=== PATIENT | female | born 1975 | race Caucasian/White ===

== ENCOUNTER → 2016-12-19 | Outpatient (CLI) | payer BC, OTHER ==
[~2016-12-19] MED LIST: CETI10TA84 PO; CLON0.5T3 PO; RXC/5 PO; VENL150C56 PO
== END | disposition home or self-care (01) ==
LOC: C.LABMFLN 15:36
PROVIDERS: ATTEND Radiology Radiation Oncology
DX: C03.1 Malignant neoplasm of lower gum (principal); Z92.3 Personal history of irradiation

== ENCOUNTER 2017-01-11 10:25 | Emergency (ER) | payer BC, OTHER ==
[~2017-01-11] VITALS: Ht 160 cm; Wt 79.2 kg
[2017-01-11 10:30] VITALS: TEMP 36.7; Ht 160 cm; Wt 79.2 kg
[2017-01-11] MEDS ORDERED: ONDANSETRON INJ 2 MG/ML 2 ML VIAL IV STA (10:46)
[2017-01-11] MEDS ORDERED: SODIUM CHLORIDE 0.9% 1000ML 2,000 ML IV STA (10:46)
[2017-01-11] MEDS ORDERED: VENL150C56 PO (10:55)
[2017-01-11] MEDS ORDERED: CLON0.5T3 PO (10:55)
[2017-01-11] MEDS ORDERED: CETI10TA84 PO (10:55)
[2017-01-11] MEDS ORDERED: RXC/5 PO (10:55)
[2017-01-11 11:00] LABS: BASO % 0.4 %; BASO ABS # 0.03 K/uL (0-0.2); COMPLETE YES; EOS % 2.8 %; HEMATOCRIT 36.8 % (37-47); IG% 0.3 %; LYMPH % 13.2 %; LYMPH ABS # 0.94 K/uL (1.2-3.4); MEAN CELL VOLUME 84.2 fL (80-100); MEAN CORPUSCULAR HEMOGLOBIN 29.1 pg (25-34); MEAN CORPUSCULAR HGB CONC 34.5 g/dl (32-36); MEAN PLATELET VOLUME 8.6 fL (7.4-10.4); MONO % 8.3 %; PLATELET COUNT 241 K/uL (130-400); RED BLOOD COUNT 4.37 M/uL (4.2-5.4); WHITE BLOOD COUNT 7.14 K/uL (4.8-10.8)
--- NOTE | 2017-01-11 11:08 | EMERGENCY ROOM VISIT NOTE ---
History Report prepared by Eric: Mustapha Fisher Under the Supervision of: Dr. Dc Greenberg M.D. First contact with patient: 10:38 Chief Complaint: DIZZY Stated Complaint: DIZZINESS,UPSET STOMACH,FEELS DEHYDRATED History of Present Illness The patient is a 41 year old female who presents to the Emergency Room with complaints of intermittent dizziness beginning a few days ago. She describes her dizziness as "it feels like the room is spinning". She states that she feels dehydrated, and her mouth is dry. She notes that she had a headache a few days ago, but currently denies one. The patient also complains of nausea. Her symptoms are improved with sitting. She denies any chest pain, SOB, urinary symptoms, or vomiting. 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 She states that she had her jaw bone removed , and replaced with a bone from her leg during the surgery. She then received radiation treatments, but no chemotherapy. The patient has a history of dehydration due to having difficulty with eating. She notes that she had a head and a chest CT last week which did not show any malignancy. Source of History: patient Onset: A few days ago Quality: other (dizziness) Timing: intermittent Modifying Factors (Relieving): other (Sitting) Associated Symptoms: + headache (resolved), + nausea, No chest pain, No SOB , No vomiting, No urinary symptoms Review of Systems See HPI for pertinent positives & negatives. A total of 10 systems reviewed and were otherwise negative. Past Medical & Surgical Medical Problems: (1) Jaw cancer (2) No Known Active Medical Problems Family History No pertinent family history stated. Social History Smoking Status: Never Smoker Marital Status: Housing Status: lives with family Current/Historical Medications Scheduled Cetirizine (Zyrtec), 10 MG PO QAM Clonazepam (Klonopin), 0.5 MG PO QPM Venlafaxine Hcl (Effexor Extended Rel), 150 MG PO QAM Scheduled PRN Oxycodone HCl (Oxycodone HCl), 5 MG PO BID PRN for Pain Allergies Coded Allergies: Acetazolamide (Unverified Allergy, Unknown, GI UPSET/VOMIT/SOB, 01/11/17) Sulfa Antibiotics (Unverified Allergy, Unknown, HIVES, 01/11/17) Sulfamethoxazole w/Trimethoprim (Unverified Allergy, Unknown, HIVES, ) Physical Exam Vital Signs Date Time Temp Pulse Resp B/P (MAP) Pulse Ox O2 Delivery O2 Flow Rate FiO2 01/11/17 12:27 84 143/86 99 01/11/17 10:51 80 01/11/17 10:50 78 16 131/82 82 140/87 85 134/89 01/11/17 10:30 36.7 86 20 129/87 99 Room Air Physical Exam GENERAL: Patient is in no acute distress. HEENT: No acute trauma, normocephalic atraumatic, mucous membranes moist, no nasal congestion, no scleral icterus. No nystagmus. NECK: No stridor, no adenopathy, no meningismus, trachea is midline. LUNGS: Clear to auscultation bilaterally, no wheeze, no rhonchi, breath sounds equal. HEART: Without murmurs gallops or rubs, regular rate and rhythm. ABDOMEN: Soft, nontender, bowel sounds positive, no hernias, no peritonitis. EXTREMITIES: No cyanosis or edema, full range of motion of all the joints without pain or difficulty, no signs for acute trauma. NEUROLOGIC: Oriented x 3, no acute motor or sensory deficits, no focal weakness. No speech slur of facial droop. No pronator drift or cerebellar dysfunction. SKIN: No rash, no jaundice, no diaphoresis. Medical Decision & Procedures ER Provider Diagnostic Interpretation: Orthostatic vital signs are negative. Urine dip negative for infection or blood. Laboratory Results 01/11/17 10:45 Red Blood Count 4.37, Mean Corpuscular Volume 84.2, Mean Corpuscular Hemoglobin 29.1, Mean Corpuscular Hemoglobin Concent 34.5, Mean Platelet Volume 8.6, Neutrophils (%) (Auto) 75.0, Lymphocytes (%) (Auto) 13.2, Monocytes (%) (Auto) 8.3, Eosinophils (%) (Auto) 2.8, Basophils (%) (Auto) 0.4, Neutrophils # (Auto) 5.36, Lymphocytes # (Auto) 0.94, Monocytes # (Auto) 0.59, Eosinophils # (Auto) 0.20, Basophils # (Auto) 0.03 01/11/17 10:45 Test 01/11/17 10:45 01/11/17 11:35 White Blood Count 7.14 K/uL (4.8-10.8) Red Blood Count 4.37 M/uL (4.2-5.4) Hemoglobin 12.7 g/dL (12.0-16.0) Hematocrit 36.8 % (37-47) Mean Corpuscular Volume 84.2 fL (80-100) Mean Corpuscular Hemoglobin 29.1 pg (25-34) Mean Corpuscular Hemoglobin Concent 34.5 g/dl (32-36) Platelet Count 241 K/uL (130-400) Mean Platelet Volume 8.6 fL (7.4-10.4) Neutrophils (%) (Auto) 75.0 % Lymphocytes (%) (Auto) 13.2 % Monocytes (%) (Auto) 8.3 % Eosinophils (%) (Auto) 2.8 % Basophils (%) (Auto) 0.4 % Neutrophils # (Auto) 5.36 K/uL (1.4-6.5) Lymphocytes # (Auto) 0.94 K/uL (1.2-3.4) Monocytes # (Auto) 0.59 K/uL (0.11-0.59) Eosinophils # (Auto) 0.20 K/uL (0-0.5) Basophils # (Auto) 0.03 K/uL (0-0.2) RDW Standard Deviation 41.2 fL (36.4-46.3) RDW Coefficient of Variation 13.5 % (11.5-14.5) Immature Granulocyte % (Auto) 0.3 % Immature Granulocyte # (Auto) 0.02 K/uL (0.00-0.02) Anion Gap 7.0 mmol/L (3-11) Est Creatinine Clear Calc Drug Dose 150.6 ml/min Estimated GFR () 139.2 Estimated GFR (Non- 120.1 BUN/Creatinine Ratio 12.6 (10-20) Calcium Level 8.9 mg/dl (8.5-10.1) Total Bilirubin 0.4 mg/dl (0.2-1) Aspartate Amino Transf (AST/SGOT) 19 U/L (15-37) Alanine Aminotransferase (ALT/SGPT) 24 U/L (12-78) Alkaline Phosphatase 65 U/L (45-117) Total Protein 8.0 gm/dl (6.4-8.2) Albumin 3.6 gm/dl (3.4-5.0) Globulin 4.4 gm/dl (2.5-4.0) Albumin/Globulin Ratio 0.8 (0.9-2) Thyroid Stimulating Hormone (TSH) 1.910 uIu/ml (0.300-4.500) Urine Color YELLOW Urine Appearance CLEAR (CLEAR) Urine pH 7.0 (4.5-7.5) Urine Specific [place] 1.014 (1.000-1.030) Urine Protein NEG (NEG) Urine Glucose (UA) NEG (NEG) Urine Ketones NEG (NEG) Urine Occult Blood NEG (NEG) Urine Nitrite NEG (NEG) Urine Bilirubin NEG (NEG) Urine Urobilinogen NEG (NEG) Urine Leukocyte Esterase NEG (NEG) Laboratory results reviewed by me. Medications Administered Medications (Trade) Dose Ordered Sig/August Route Start Time Stop Time Status Last Admin Dose Admin Ondansetron HCl (Zofran Inj) 4 mg NOW STAT IV 01/11/17 10:46 01/11/17 10:49 DC 01/11/17 11:07 4 MG Sodium Chloride 2,000 ml @ 999 mls/hr Q2H1M STAT IV 01/11/17 10:46 01/11/17 12:42 DC 01/11/17 11:07 999 MLS/HR ED Course 1041: The patient was evaluated in room A10. A complete history and physical exam was performed. 1046: Ordered Sodium Chloride 2000 ml @ 999 mls/hr IV, Zofran Inj 4 mg IV. 1210: Reevaluated the patient. Discussed results and discharge instructions: she verbalized understanding and agreement. The patient is ready for discharge. Medical Decision The patient is a 41 year old female who presents to the ED with complaints of dizziness. Differential diagnoses considered include dehydration, electrolyte imbalance, anemia, UTI, vertigo, metastatic disease, and stroke. There is no leukocytosis or concerning anemia. No significant electrolyte abnormality, kidney failure or hepatitis. Orthostatic vital signs are negative. The patient appears to be in a euthyroid state. Urinalysis does not show evidence for infection. The patient was not toxic or febrile, she was resting comfortably during my evaluation. The patient just underwent a CT of her brain and chest looking for metastases, these studies were negative. On exam, she has no focal neurologic deficits. The patient was given IV Zofran, she received IV saline, she feels improved. The patient is likely dehydrated, there maybe some vertigo present as well. I do think rest and hydration are what she requires. She can return here for worsening symptoms. Impression Primary Impression: Dizziness Additional Impression: Dehydration Scribe Attestation The scribe's documentation has been prepared under my direction and personally reviewed by me in its entirety. I confirm that the note above accurately reflects all work, treatment, procedures, and medical decision making performed by me. Departure Information Dispostion Home / Self-Care Referrals Everette Green M.D. (PCP) Forms HOME CARE DOCUMENTATION FORM, IMPORTANT VISIT INFORMATION Patient Instructions My [facility] Additional Instructions stay hydrated return if worsening lab testing today was ok Problem Qualifiers
[2017-01-11 11:15] LABS: BUN/CREATININE RATIO 12.6 (10-20); CALCIUM 8.9 mg/dl (8.5-10.1); CREATININE 0.48 mg/dl (0.60-1.20); POTASSIUM 3.9 mmol/L (3.5-5.1)
[2017-01-11 11:26] LABS: ALB/GLOB RATIO 0.8 (0.9-2); THYROID STIMULATING HORMONE 1.91 uIu/ml (0.300-4.500)
[2017-01-11 12:01] LABS: MANUAL MICROSCOPIC REQUIRED? NO; REVIEW REQ? NO; URINE APPEARANCE CLEAR (CLEAR); URINE BILIRUBIN NEG (NEG); URINE COLOR YELLOW; URINE NITRITE NEG (NEG); URINE SPECIFIC GRAVITY 1.014 (1.000-1.030); UROBILINOGEN NEG (NEG); ZZUR CULT IF INDIC CLEAN CATCH NO
[2017-01-11 12:27] VITALS: BP 143/86; PULSE 84; O2SAT 99
== END 2017-01-11 12:30 | disposition home or self-care (01) ==
LOC: C.EDB 10:27 → C.EDA 12:30
DX: E86.0 Dehydration (principal); R42 Dizziness and giddiness; Z98.890 Other specified postprocedural states; Z85.830 Personal history of malignant neoplasm of bone; Z92.3 Personal history of irradiation; Z79.899 Other long term (current) drug therapy

== ENCOUNTER → 2017-07-10 | Outpatient (CLI) | payer BC ==
[~2017-07-10] MED LIST changes: -CLON0.5T3 PO; +GABA-112 PO; +KLN/5 PO; +LEVE250T PO; +MELO7.5T5 PO; +compound cream
== END | disposition home or self-care (01) ==
LOC: C.LABMFLN 08:31
PROVIDERS: ATTEND Family Medicine
DX: R35.0 Frequency of micturition (principal); R39.15 Urgency of urination

== ENCOUNTER 2025-03-23 14:24 | Observation (INO) ==
--- NOTE | 2025-03-23 14:40 | Emergency Department Note ---
Impression & Plan Cellulitis ED Provider Note CHIEF COMPLAINT: Cellulitis HISTORY OF PRESENTING ILLNESS: The patient is a pleasant 49-year-old female who arrives to the emergency department for evaluation of a bug bite on the back. The patient was seen on Saturday night for back pain, discharged home on doxycycline, as she was previously seen at urgent care, and provided Keflex. Patient states the area has not improved, and has worsened. She states pain is worsened as well. She reports feeling feverish at home. She reports persistent fatigue, abdominal pain, nausea. Vital signs are currently stable, she is currently afebrile. REVIEW OF SYSTEMS: See HPI for pertinent positives and pertinent negatives. ALLERGIES: See below MEDICATIONS: See below PAST MEDICAL HISTORY: See below PHYSICAL EXAM: VITALS: Vitals are noted on the nurse's note and reviewed by myself. Vital signs stable. GENERAL: 49-year-old female, in no acute distress, nondiaphoretic, well- developed well-nourished. SKIN: 9cm x 5cm erythematous, indurated area on the left mid back. No central fluctuance noted. HEART: Regular rate and rhythm without murmurs gallops or rubs. LUNGS: Clear to auscultation bilaterally without wheezes, rales or rhonchi. No retractions or accessory muscle use. MUSCULOSKELETAL: No muscle atrophy, erythema, or edema noted. Normal gait. Strength 5/5 throughout. NEURO: Patient was alert and oriented to person place and time. No focal neurological deficits. DIFFERENTIAL DIAGNOSIS: Cellulitis, abscess, MRSA infection, DVT, necrotizing fasciitis, dermatitis, drug eruption, allergic reaction, as well as other pathologies. ED COURSE AND MEDICAL DECISION MAKING: MEDICATIONS GIVEN: IV Rocephin 2 g, IV vancomycin 1750 mg INTERPRETATION OF LABS: I interpreted the labs with full lab results as below in the lab section of this note. Pertinent lab results discussed in the MDM section below. INTERPRETATION OF IMAGING: Imaging studies were interpreted by myself and read by radiology as per the imaging section of this note. MDM SUMMARY: The patient is a pleasant, 49-year-old female who arrives to the emergency department for evaluation of the above-stated complaint. Saline lock was established, septic workup was obtained. Lab work shows improvement in leukocytosis from 16.91 on 03/21-11.79. Patient CMP is unremarkable. Procalcitonin negative, lactate 0.5. Blood cultures were obtained. Tickborne panel was obtained, with initial Lyme negative. Bedside ultrasound performed, showing no fluid collection. Patient was provided IV Rocephin, and daptomycin on previous visit, with discharge with doxycycline, and was previously on cephalexin. Patient appears to be failing outpatient antibiotics and will require hospital admission for IV antibiotic therapy. Patient was provided IV Rocephin, and IV vancomycin, weight-based dosing. [facility]. Zhong, agreed to evaluate the patient for admission. Please refer to his documentation for further patient workup and care. DIAGNOSIS: Cellulitis The chart was completed utilizing [employer] voice recognition software. Grammatical errors, random word insertions, pronoun errors, and incomplete sentences are an occasional consequence of this system due to software limitations, ambient noise, and hardware issues. Any formal questions or concerns about the content, text, or information contained within the body of this dictation should be directly addressed to the provider for clarification. Past Med/Surg History Problem List (Updated 03/23/25 @ 16:49 by MORALES Garcia) Cellulitis (Acute) Fever (Acute) Cellulitis (Acute) Sensorineural hearing loss (SNHL) of right ear with unrestricted hearing of left ear Tinnitus, bilateral Other abnormal and inconclusive findings on diagnostic imaging of breast Congenital hypothyroidism Diabetes mellitus, type 2 Chronic GERD Lumbago Hypercholesterolemia Hypothyroidism Depression with anxiety Dyshidrotic eczema Hypertension, benign Diabetes mellitus Abnormal mammogram (Acute) Asthma (Acute) inhaler prn Benign paroxysmal positional vertigo (Acute) Depression (Acute) Esophageal reflux (Acute) Medical History 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 Breast mass Anxiety Surgical History History of cholecystectomy History of colonoscopy History of wisdom tooth extraction History of tonsillectomy and adenoidectomy History of oral surgery cancerous tumor removal in right lower jaw bone--reconstruction with metal plate in place @ [facility] 2016 History of hysterectomy History of section x2 Family History Father Hypertension Family history of diabetes mellitus Heart disease, Onset Age: 70 atrial firillation Mother Pure hypercholesterolemia Family history of reaction to anesthesia nausea/vomiting Sister Other disorders of blood and blood-forming organs in diseases classified elsewhere Fibromyalgia Pure hypercholesterolemia Grandfather Malignant neoplasm of stomach Prostate cancer Family history of lung cancer Grandmother Ovarian cancer Uncle Family history of esophageal cancer Social History Smoking Status: Never smoker Second Hand Exposure: Yes (parents smoked); Do You Dip or Chew Tobacco: No; Hx Alcohol Use: Yes Alcohol type: wine Hx Substance Use: No Preferred Language: German Communication Ability: Effective Master Of Ceremonies Required: No Beliefs That Will Affect Care: None Current Living Situation: Spouse Feels Safe at Home: Yes caffeine: Yes during the past year weight has: remained stable Dental Care, Regularly: Yes Physical Activity Frequency: 1-2 Times per Week Seatbelt Use: always Sunscreen Use: No Assistive Devices: None Allergies Allergies Allergy/AdvReac Type Severity Reaction Status Date / Time acetazolamide Allergy Severe SHORT OF Verified 03/21/25 20:31 BREATH/GI UPSET/VOMIT pollen extracts Allergy Intermediate ITCHY Verified 03/21/25 20:32 EYES, SNEEZING Sulfa (Sulfonamide Allergy Intermediate HIVES Verified 03/21/25 20:31 Antibiotics) sulfamethoxazole Allergy Intermediate HIVES Verified 03/21/25 20:31 trimethoprim Allergy Intermediate HIVES Verified 03/21/25 20:31 amoxicillin [From Augmentin] AdvReac Intermediate Diarrhea Verified 03/21/25 20:31 bupropion [From Wellbutrin] AdvReac Intermediate headaches Verified 03/21/25 20:31 clavulanic acid AdvReac Intermediate Diarrhea Verified 03/21/25 20:31 [From Augmentin] cyclobenzaprine AdvReac Intermediate GERD Verified 03/21/25 20:31 empagliflozin AdvReac Intermediate ABD UPSET Verified 03/21/25 20:31 [From Jardiance] glipizide AdvReac Intermediate Diarrhea Verified 03/21/25 20:32 metformin AdvReac Intermediate Diarrhea Verified 03/21/25 20:31 nirmatrelvir AdvReac Intermediate Nause and Verified 03/21/25 20:31 [From Paxlovid (EUA)] emesis ritonavir AdvReac Intermediate Nause and Verified 03/21/25 20:31 [From Paxlovid (EUA)] emesis cephalexin AdvReac Intermediate Stomach Uncoded 03/21/25 20:31 upset ozempic AdvReac Intermediate Abdominal Uncoded 03/21/25 20:31 Pain Mounjaro AdvReac Mild sulfer Uncoded 03/21/25 20:31 Burps Home Meds Home Medications Medication Instructions Recorded Confirmed cephalexin 500 mg capsule 500 mg PO QID 03/21/25 03/23/25 cetirizine 10 mg tablet 10 mg PO QAM 03/21/25 03/23/25 clonazepam 1 mg tablet 1 mg PO HS PRN ANXIETY/SLEEP 03/21/25 03/23/25 escitalopram oxalate 20 mg tablet 20 mg PO DAILY 03/21/25 03/23/25 insulin degludec 200 unit/mL (3 10 unit subcut DAILY 03/21/25 03/23/25 mL) subcutaneous pen (Tresiba FlexTouch U-200 insulin) levothyroxine 50 mcg tablet 50 mcg PO DAILYBB 03/21/25 03/23/25 rosuvastatin 10 mg tablet 10 mg PO DAILY 03/21/25 03/23/25 Previous Rx's Medication Instructions Recorded blood-glucose meter (Tempronicsuch #1 ea 03/31/19 Ultra2 Meter kit) lancets 33 gauge (OneTouch Delica #100 ea 10/05/21 Lancets) albuterol sulfate 90 mcg/actuation 2 puff inhalation Q4H PRN 06/27/23 aerosol inhaler shortness of breath or wheezing #72 grams blood sugar diagnostic #100 ea 04/28/24 sitagliptin phosphate 100 mg 100 mg PO DAILY #90 tabs 05/07/24 tablet (Januvia) doxycycline hyclate 100 mg capsule 100 mg PO BID 7 days #14 caps 03/21/25 Results & Data (ED) Vital Signs Vital Signs - 24 hr 03/23/25 14:26 03/23/25 16:11 Temperature 36.5 C Temperature Source Temporal Artery Scan Pulse Rate 94 H Pulse Rate [Finger] 83 Pulse Rhythm [Finger] Regular Pulse Strength [Finger] Normal Respiratory Rate 14 Respiratory Effort / Characteristics Non-Labored Non-Labored Spontaneous Respiratory Depth Normal Normal Respiratory Pattern Regular Regular Blood Pressure 128/82 Blood Pressure [Right Arm] 111/67 Blood Pressure Mean 97 Blood Pressure Mean [Right Arm] 81 Blood Pressure Position [Right Arm] Sitting Pulse Oximetry 97 95 Oxygen Delivery Method Room Air Room Air Sepsis Recent Fever Within 48 Hours No Sepsis New/Unexplained Change in Mental Status N/A Sepsis Action Taken by Nursing No Action Required Home Medications Current Medication List: was personally reviewed by me Laboratory Data Attestation: I reviewed the patient's lab results. 03/23/25 15:13 03/23/25 15:13 Lab Results 03/23/25 03/23/25 Range/Units 15:13 15:34 WBC 11.79 H (4.8-10.8) K/ul RBC 4.00 L (4.20-5.40) M/uL Hgb 11.7 L (12.0-16.0) g/dl Hct 34.6 L (37.0-47.0) % MCV 86.5 (80.0-100.0) fL MCH 29.3 (25.0-34.0) pg MCHC 33.8 (32.0-36.0) g/dL RDW Std Deviation 38.5 (36.4-46.3) fL RDW Coeff of Bree 12.1 (11.5-14.5) % Plt Count 258 (130-400) K/uL MPV 9.0 L (9.4-12.4) fL Immature Gran % (Auto) 1.2 % Neut % (Auto) 72.8 % Lymph % (Auto) 13.3 % [place] % (Auto) 11.1 % Eos % (Auto) 1.3 % Baso % (Auto) 0.3 % Neut # (Auto) 8.59 H (1.40-6.50) K/uL Lymph # (Auto) 1.57 (1.20-3.40) K/uL [place] # (Auto) 1.31 H (0.11-0.59) K/uL Eos # (Auto) 0.15 (0.00-0.50) K/uL Baso # (Auto) 0.03 (0.00-0.20) K/uL Immature Gran # (Auto) 0.14 (0.01-0.20) K/uL Sodium 137 (136-145) mmol/L Potassium 3.3 L (3.5-5.1) mmol/L Chloride 102 (98-107) mmol/L Carbon Dioxide 28 (21-32) mmol/L Anion Gap 7 (3-11) BUN 10 (6-23) mg/dl Creatinine 0.42 L (0.6-1.2) mg/dl Est Cr Clr Drug Dosing 164.8 ml/min eGFR 118.35 BUN/Creatinine Ratio 23.8 H (10-20) Glucose 216 H (70-99(Fasting)) mg/dl Lactate 0.5 (0.4-2.0) mmol/L Calcium 8.7 (8.6-10.3) mg/dl Total Bilirubin 0.5 (0.2-1.0) mg/dl AST 19 (13-39) U/L ALT 17 (7-52) U/L Alkaline Phosphatase 82 (34-104) U/L Total Protein 7.1 (6.0-8.3) gm/dl Albumin 3.7 (3.4-5.0) gm/dl Globulin 3.4 (2.5-4.0) gm/dl Albumin/Globulin Ratio 1.1 (0.9-2) Procalcitonin 0.17 (0-0.5) ng/ml Anaplasma Smear See Comment Babesia Smear See Comment Lyme Disease Screen Negative (Negative) Administered Medications Vancomycin HCl 1,750 mg/ (Sodium Chloride) 535 mls @ 200 mls/hr IV NOW ONE Stop: 03/23/25 18:00 Last Admin: 03/23/25 16:18 Dose: 200 mls/hr Documented By: JODY Discontinued Medications Ceftriaxone Sodium (Rocephin) 2,000 mg in 50 mls @ 100 mls/hr IV NOW STA Stop: 03/23/25 15:49 Last Infusion: 03/23/25 16:08 Dose: Infused Documented By: mls Admin: 03/23/25 15:38 Dose: 100 mls/hr Documented By: mls Discharge Plan Visit Data Chief Complaint: Back Injury/Pain Stated Complaint: CELLULITIS ON BACK ED Provider: hBanu Cotto ED Midlevel Provider: Janeen Sims Discharge Problem: Cellulitis Patient Disposition: Home - Self-Care Condition: Fair Forms Stand Alone Forms: My [facility], Important Visit Information Prescriptions Prescriptions: No Action (DME) blood-glucose meter [OneTouch Ultra2 Meter] kit See Dose Instructions .ROUTE .MEDSUPPLY Qty: 1 0RF Dose Instruction: As directed Rx Instructions: As directed Dx E11.9 (DME) lancets [OneTouch Delica Lancets] 33 gauge misc See Dose Instructions .ROUTE .MEDSUPPLY Qty: 100 3RF Dose Instruction: As directed Rx Instructions: As directed once daily Januvia 100 mg tablet 100 mg PO DAILY Qty: 90 3RF albuterol sulfate 90 mcg/actuation HFA aerosol inhaler 2 puff inhalation Q4H PRN (Reason: shortness of breath or wheezing) Qty: 72 1RF (DME) blood sugar diagnostic Strip See Dose Instructions .ROUTE .MEDSUPPLY Qty: 100 4RF Dose Instruction: As directed Rx Instructions: As directed Test 1 time a day Dx E11.9 cephalexin 500 mg capsule 500 mg PO QID Rx Instructions: STARTED 03/19/25 FOR 7 DAYS escitalopram oxalate 20 mg tablet 20 mg PO DAILY insulin degludec [Tresiba FlexTouch U-200] 200 unit/mL (3 mL) Insulin Pen 10 unit SUBCUT DAILY cetirizine 10 mg tablet 10 mg PO QAM clonazepam 1 mg tablet 1 mg PO HS PRN (Reason: ANXIETY/SLEEP) levothyroxine 50 mcg tablet 50 mcg PO DAILYBB rosuvastatin 10 mg tablet 10 mg PO DAILY doxycycline hyclate 100 mg capsule 100 mg PO BID 7 Days Qty: 14 0RF Referrals Referrals: Jeff Casillas MD [ED Physician] -
[2025-03-23] MEDS ORDERED: VANCOMYCIN CONSULT ACTIVE PRN (15:20)
[2025-03-23 15:34] LABS: Hematocrit (blood only) 34.6 % (37.0-47.0); Hemoglobin 11.7 g/dl (12.0-16.0); Immature Granulocytes # (auto) 0.14 K/uL (0.01-0.20); Immature Granulocytes % (auto) 1.2 %; Mean Corpuscular Hemoglobin 29.3 pg (25.0-34.0); Mean Corpuscular Volume 86.5 fL (80.0-100.0); Platelet Count 258 K/uL (130-400); RDW Standard Deviation 38.5 fL (36.4-46.3); Red Blood Count 4.00 M/uL (4.20-5.40); White Blood Count 11.79 K/ul (4.8-10.8)
[2025-03-23] MEDS: cefTRIAXone SODIUM 2,000 MG/50 ML BAG IV STA (15:38)
[2025-03-23 15:51] LABS: Alanine Aminotransferase 17.0 U/L (7-52); Albumin Globulin Ratio 1.1 (0.9-2); Alkaline Phosphatase 82.0 U/L (34-104); Anion Gap 7.0 (3-11); Bilirubin,Total 0.5 mg/dl (0.2-1.0); Blood Urea Nitrogen 10.0 mg/dl (6-23); Calcium 8.7 mg/dl (8.6-10.3); Carbon Dioxide 28.0 mmol/L (21-32); Chloride 102.0 mmol/L (98-107); Creatinine Clr Calc Pharmacy 164.8 ml/min; Globulin 3.4 gm/dl (2.5-4.0); Glucose 216.0 mg/dl (70-99(Fasting)); Potassium 3.3 mmol/L (3.5-5.1); Sodium 137.0 mmol/L (136-145); Total Protein 7.1 gm/dl (6.0-8.3)
[2025-03-23 16:03] LABS: Procalcitonin 0.17 ng/ml (0-0.5)
--- NOTE | 2025-03-23 16:08 | History & Physical Report ---
Date of Service March 23, 2025 Assessment & Plan (1) Cellulitis: (2) Fever: (3) Failure of outpatient treatment: Plan: This is a 49-year-old female with PMH of type 2 diabetes, hypothyroidism, intermittent asthma, atherosclerosis of left carotid artery, depression and anxiety who presents from home with cellulitis of mid-back. Tmax 102.5 at home, afebrile on arrival after Tylenol en route WBC 11.79 Tick serology negative so far, DNA tests pending Worsening appearance despite 5 days of Keflex and 3 of doxy as outpatient Broadened rocephin to Cefepime for pseudomonal coverage, continue Vanco for now for broad empiric coverage Bedside ultrasound performed in ED - no fluid collection Follow blood culture PRN tylenol, toradol for pain/fever (4) Diabetes mellitus, type 2: Plan: A1c 9.9 earlier this month, increased from 8.2 Hold home agents Basal/bolus insulin per protocol while admitted Glycemic consult placed, appreciate recs for optimizing home regimen BSG AC HS (5) Hypokalemia: Plan: K 3.3 today, repleted Monitor in AM (6) Hypothyroidism: Plan: Continue levothyroxine (7) Depression with anxiety: Plan: Continue Lexapro daily, PRN clonazepam HS (8) HLD (hyperlipidemia): Plan: Continue statin DVT Ppx: SQ lovenox Code status: FULL PCP: Leyda (newly established) Dispo: Admitted to med/surg Patient seen in collaboration with Dr. Zhong. Please see addendum. I spent a total of 75 minutes coordinating, documenting, and providing care for this patient excluding time spent in the performance of separately billed services or time spent by another provider/QHP. History of Present Illness Chief Complaint: cellulitis, fever Primary Care Provider: Jeffery Crabtree MD This is a 49-year-old female with PMH of type 2 diabetes, hypothyroidism, intermittent asthma, atherosclerosis of left carotid artery, depression and anxiety who presents from home with worsening pain and swelling of lesion on her back as well as fever. Was initially seen in virtual urgent care on 03/19 and was started on Keflex. Area continued to grow bigger and more painful, so she presented to ED for further evaluation. Had a CT scan at that time which did not show fluid collection and was discharged home with instructions to continue Keflex and was started on doxycycline as well. Area has continued to enlarge despite antibiotics, so patient return to ED for further evaluation today. Has had a fever (Tmax 102.5) despite alternating Tylenol and ibuprofen as well as dull headache, chills, generalized weakness and decreased appetite. [place] but denies any known tick or bite. No CP, SOB, N/V, abd pain, dysuria or diarrhea. Feels slightly constipated given poor PO intake. Allergies Allergy/AdvReac Type Severity Reaction Status Date / Time acetazolamide Allergy Severe SHORT OF Verified 03/21/25 20:31 BREATH/GI UPSET/VOMIT pollen extracts Allergy Intermediate ITCHY Verified 03/21/25 20:32 EYES, SNEEZING Sulfa (Sulfonamide Allergy Intermediate HIVES Verified 03/21/25 20:31 Antibiotics) sulfamethoxazole Allergy Intermediate HIVES Verified 03/21/25 20:31 trimethoprim Allergy Intermediate HIVES Verified 03/21/25 20:31 amoxicillin [From Augmentin] AdvReac Intermediate Diarrhea Verified 03/21/25 20:31 bupropion [From Wellbutrin] AdvReac Intermediate headaches Verified 03/21/25 20:31 cephalexin [From Keflex] AdvReac Intermediate Gastrointestinal Verified 03/23/25 18:43 Upset clavulanic acid AdvReac Intermediate Diarrhea Verified 03/21/25 20:31 [From Augmentin] cyclobenzaprine AdvReac Intermediate GERD Verified 03/21/25 20:31 empagliflozin AdvReac Intermediate ABD UPSET Verified 03/21/25 20:31 [From Jardiance] glipizide AdvReac Intermediate Diarrhea Verified 03/21/25 20:32 metformin AdvReac Intermediate Diarrhea Verified 03/21/25 20:31 nirmatrelvir AdvReac Intermediate Nause and Verified 03/21/25 20:31 [From Paxlovid (EUA)] emesis ritonavir AdvReac Intermediate Nause and Verified 03/21/25 20:31 [From Paxlovid (EUA)] emesis tirzepatide [From Mounjaro] AdvReac Mild BURPS Verified 03/23/25 18:44 semaglutide [From Ozempic] AdvReac Abdominal Verified 03/23/25 18:46 Pain Home Medications Medication Instructions Recorded Confirmed Type blood-glucose meter (OneTouch #1 ea 03/31/19 03/23/25 Rx Ultra2 Meter kit) lancets 33 gauge (OneTouch Delica #100 ea 10/05/21 03/23/25 Rx Lancets) albuterol sulfate 90 mcg/actuation 2 puff inhalation Q4H PRN 06/27/23 03/23/25 Rx aerosol inhaler shortness of breath or wheezing #72 grams blood sugar diagnostic #100 ea 04/28/24 03/23/25 Rx sitagliptin phosphate 100 mg 100 mg PO DAILY #90 tabs 05/07/24 03/23/25 Rx tablet (Januvia) cephalexin 500 mg capsule 500 mg PO QID 03/21/25 03/23/25 History cetirizine 10 mg tablet 10 mg PO QAM 03/21/25 03/23/25 History clonazepam 1 mg tablet 1 mg PO HS PRN ANXIETY/SLEEP 03/21/25 03/23/25 History doxycycline hyclate 100 mg capsule 100 mg PO BID 7 days #14 caps 03/21/25 03/23/25 Rx escitalopram oxalate 20 mg tablet 20 mg PO DAILY 03/21/25 03/23/25 History insulin degludec 200 unit/mL (3 10 unit subcut DAILY 03/21/25 03/23/25 History mL) subcutaneous pen (Tresiba FlexTouch U-200 insulin) levothyroxine 50 mcg tablet 50 mcg PO DAILYBB 03/21/25 03/23/25 History rosuvastatin 10 mg tablet 10 mg PO DAILY 03/21/25 03/23/25 History Past Med/Surg History Problem List (Updated 03/23/25 @ 17:49 by Jocelyne Post PA-C) Hypokalemia Failure of outpatient treatment Cellulitis (Acute) Fever (Acute) Sensorineural hearing loss (SNHL) of right ear with unrestricted hearing of left ear Tinnitus, bilateral Other abnormal and inconclusive findings on diagnostic imaging of breast Diabetes mellitus, type 2 Chronic GERD Lumbago Hypercholesterolemia Hypothyroidism Depression with anxiety Dyshidrotic eczema Hypertension, benign Diabetes mellitus Abnormal mammogram (Acute) Asthma (Acute) inhaler prn Benign paroxysmal positional vertigo (Acute) Depression (Acute) Esophageal reflux (Acute) Medical History (Updated 03/23/25 @ 17:49 by Jocelyne Post PA-C) HLD (hyperlipidemia) 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 Breast mass Anxiety Surgical History History of cholecystectomy History of colonoscopy History of wisdom tooth extraction History of tonsillectomy and adenoidectomy History of oral surgery cancerous tumor removal in right lower jaw bone--reconstruction with metal plate in place @ [facility] 2016 History of hysterectomy History of section x2 Family History Father Hypertension Family history of diabetes mellitus Heart disease, Onset Age: 70 atrial firillation Mother Pure hypercholesterolemia Family history of reaction to anesthesia nausea/vomiting Sister Other disorders of blood and blood-forming organs in diseases classified elsewhere Fibromyalgia Pure hypercholesterolemia Grandfather Malignant neoplasm of stomach Prostate cancer Family history of lung cancer Grandmother Ovarian cancer Uncle Family history of esophageal cancer Social History Smoking Status: Never smoker Second Hand Exposure: Yes (parents smoked); Do You Dip or Chew Tobacco: No; Hx Alcohol Use: Yes Alcohol type: wine Hx Substance Use: No Preferred Language: Syrian Communication Ability: Effective Ruling Technician Required: No Beliefs That Will Affect Care: None Current Living Situation: Spouse Feels Safe at Home: Yes caffeine: Yes during the past year weight has: remained stable Dental Care, Regularly: Yes Physical Activity Frequency: 1-2 Times per Week Seatbelt Use: always Sunscreen Use: No Assistive Devices: None Review of Systems Review of Systems: At least ten systems reviewed and negative except as noted in the HPI. Physical Exam Physical Exam: Gen: WD/WN, NAD, sitting in bedside chair, A&Ox3 HEENT: Normocephalic, atraumatic, mucous membranes moist Lung: Clear to Auscultation bilaterally Heart: Regular rate, regular rhythm Abdomen: Soft, NT, ND +BS x 4 Extremities: no edema Skin: Warm, + 9cm x 5cm erythematous, indurated area on the left mid back. No central fluctuance noted. TTP Results & Data Results & Data Vital Signs (Past 12 Hours) Vital Signs Temp Pulse Resp BP Pulse Ox O2 Del Method 03/23/25 14:26 36.5 C 94 H 14 128/82 97 Room Air Laboratory Results Short CBC 03/23/25 Range/Units 15:13 WBC 11.79 H (4.8-10.8) K/ul Hgb 11.7 L (12.0-16.0) g/dl Hct 34.6 L (37.0-47.0) % Plt Count 258 (130-400) K/uL BMP 03/23/25 15:13 Sodium 137 Potassium 3.3 L Chloride 102 Carbon Dioxide 28 BUN 10 Creatinine 0.42 L Glucose 216 H Calcium 8.7 Liver Function 03/23/25 Range/Units 15:13 Total Bilirubin 0.5 (0.2-1.0) mg/dl AST 19 (13-39) U/L ALT 17 (7-52) U/L Alkaline Phosphatase 82 (34-104) U/L Albumin 3.7 (3.4-5.0) gm/dl Supervising Physician Co-Signing Physician Notes Attending addendum:: The patient was seen and examined in emergency room She has been here with nonhealing cellulitis at the right mid back which have been following a bug bite about 7 to 10 days back She has had 5 days of Keflex and 3 days of Doxy as an outpatient without any improvement and noted to have fever as well without any drainage from the local area Complains pain and fever but no other significant symptoms On examination Lying in bed without any significant distress Afebrile in ER and remains hemodynamically stable Chestclear to auscultate bilaterally HeartS1-S2, regular Abdomenbenign Local examination of the back showed about 6 cm redness, lumpiness with tenderness and increased local temperature noted left lower back chest wall and adjoining abdominal wall No evidence of drainage Her admission labs and imaging studies reviewed Cellulitis with soft tissue swelling involving the left side of the mid back - likely has antibiotic without any evidence of fluctuation Blood cultures were taken and she was started with intravenous cefepime and vancomycin-to cover Pseudomonas given DM Her other significant medical conditions remained stable as managed accordingly as above Agree with assessment plan as outlined above by Jocelyne Post PA-C and take the full responsibility of care in the hospital Dr Angela Zhong (2) Fever Fever type: unspecified Qualified Code(s): R50.9 - Fever, unspecified (4) Diabetes mellitus, type 2 Diabetes mellitus complication status: without complication Diabetes mellitus brand director insulin use: without assisted use Qualified Code(s): E11.9 - Type 2 diabetes mellitus without complications
[2025-03-23] MEDS: VANCOMYCIN HCL 1,750 MG in SODIUM CHLORIDE 0.9% 500 ML IV ONE (16:18)
[2025-03-23 16:28] LABS: Lyme Screen Rflx Confirmation Negative (Negative)
[2025-03-23] MEDS ORDERED: DEXTROSE 50% 50 ML SYRINGE IV PRN (17:26)
[2025-03-23] MEDS ORDERED: GLUCOSE 10 TAB/TUBE PO PRN (17:26)
[2025-03-23] MEDS ORDERED: GLUCOSE 40% GEL 15 GM TUBE PO PRN (17:26)
[2025-03-23] MEDS ORDERED: GLUCAGON FOR INJ 1 MG VIAL SQ PRN (17:26)
[2025-03-23] MEDS ORDERED: CARBOHYDRATES FOR HYPOGLYCEMIA PO PRN (17:26)
[2025-03-23] MEDS ORDERED: PHARMACY GLYCEMIC MGMT CONSULT PRN (17:37)
--- NOTE | 2025-03-23 17:53 | Ultrasound Report ---
US soft tissue History: Swollen area on the back Comparison: None Findings/impression: Targeted ultrasound utilizing grayscale and color Doppler technique over the left mid back region at the area of concern, shows no focal abnormality. No mass or fluid collection. Slightly increased vascularity noted in the immediate subcutaneous region may be seen with cellulitis. Electronically signed by Rm Mcneill 03-23-2025 5:52 PM
[2025-03-23] MEDS ORDERED: ALBUTEROL HFA 8 GM INHALER INH PRN (18:37)
[2025-03-23] MEDS ORDERED: ONDANSETRON INJ 2 MG/ML 2 ML VIAL IV PRN (18:37)
[2025-03-23] MEDS ORDERED: POLYETHYLENE (MIRALAX) 17 GM PACK PO PRN (18:37)
[2025-03-23] MEDS ORDERED: MELATONIN 3 MG TAB PO PRN (18:37)
[2025-03-23] MEDS: KETOROLAC TROMETHAMINE 15 MG/ML VIAL IV PRN (19:52)
[2025-03-23] MEDS: CEFEPIME 2000MG 2,000 MG/20 ML SYR IV SCH (19:52)
[2025-03-23] MEDS: clonazePAM 1 MG TAB PO PRN (19:52)
[2025-03-23] MEDS: POTASSIUM CHLORIDE CRTAB 20 MEQ TABCR PO STA (19:53)
[2025-03-23] MEDS: ENOXAPARIN INJ 40 MG/0.4 ML SYR SQ SCH (19:54)
[2025-03-23] MEDS: INSULIN ASPART PER UNIT CHARGE SC SCH ×2 (19:54→22:49)
[2025-03-23] MEDS: ACETAMINOPHEN 500 MG TAB PO PRN (22:49)
[2025-03-23] MEDS: LANTUS PER UNIT CHARGE SQ SCH (22:49)
[2025-03-24] MEDS: VANCOMYCIN HCL 1,500 MG in SODIUM CHLORIDE 0.9% 500 ML IV SCH (03:49)
[2025-03-24] MEDS: LEVOTHYROXINE SODIUM 50 MCG TABLET PO SCH (06:20)
[2025-03-24 07:08] LABS: Hematocrit (blood only) 32.1 % (37.0-47.0); Hemoglobin 10.7 g/dl (12.0-16.0); Mean Corpuscular Hemoglobin 29.0 pg (25.0-34.0); Mean Corpuscular Volume 87.0 fL (80.0-100.0); Platelet Count 253 K/uL (130-400); RDW Standard Deviation 38.5 fL (36.4-46.3); Red Blood Count 3.69 M/uL (4.20-5.40); White Blood Count 12.16 K/ul (4.8-10.8)
[2025-03-24 07:27] LABS: Anion Gap 7.0 (3-11); Blood Urea Nitrogen 10.0 mg/dl (6-23); Calcium 8.1 mg/dl (8.6-10.3); Carbon Dioxide 26.0 mmol/L (21-32); Chloride 105.0 mmol/L (98-107); Creatinine Clr Calc Pharmacy 177.5 ml/min; Glucose 139.0 mg/dl (70-99(Fasting)); Potassium 3.6 mmol/L (3.5-5.1); Sodium 138.0 mmol/L (136-145)
[2025-03-24] MEDS: ROSUVASTATIN CALCIUM 10 MG TAB PO SCH (08:55)
[2025-03-24] MEDS: ESCITALOPRAM OXALATE 20 MG TAB PO SCH (08:55)
[2025-03-24] MEDS: CETIRIZINE HCL 10 MG TABLET PO SCH (08:55)
--- NOTE | 2025-03-24 11:52 | Pharmacy Report ---
Pharmacy PK ABX Note - Date of Service March 24, 2025 - Assessment and Plan Assessment 49 year old F receiving vancomycin/cefepime for treatment of cellulitis of the mid back- failed Keflex x5 days and doxycyline x3 outpatient. Pertinent microbiologic data includes: blood cultures pending. Day # 2 of antimicrobial therapy. Plan Vancomycin * Loading dose: 1750 mg IV x 1 * Maintenance dose: 1500 mg IV every 12 hours * Regimen is predicted to achieve target AUC/JUANCHO of 400-600 mg/L.hr * Trough level ordered for: 03/25/25 @ 0330 Pharmacy will continue to follow and will adjust dose/frequency as necessary. Thank you. Pharmacy has transitioned to AUC monitoring for vancomycin. AUC/JUANCHO is the preferred PK/PD target and is associated with decreased risk of nephrotoxicity compared to traditional trough targets.
--- NOTE | 2025-03-24 11:55 | Hospitalist Progress Note ---
Date of Service March 24, 2025 Assessment & Plan (1) Cellulitis: (2) Fever: (3) Failure of outpatient treatment: Plan: This is a 49-year-old female with PMH of type 2 diabetes, hypothyroidism, intermittent asthma, atherosclerosis of left carotid artery, depression and anxiety who presents from home with cellulitis of mid-back. Tmax 102.5 at home, Leukocytosis present on admission Was on Keflex and doxycycline as outpatient; was not improving. Soft tissue ultrasound did not show any presence of abscess Continue on current antibiotics; follow-up on blood culture Continue Tylenol/Toradol for pain/fever. (4) Diabetes mellitus, type 2: Plan: A1c 9.9 earlier this month, increased from 8.2 Hold home agents Basal/bolus insulin per protocol while admitted Glycemic consult placed, appreciate recs for optimizing home regimen BSG AC HS (5) Hypokalemia: Plan: repleted (6) Hypothyroidism: Plan: Continue levothyroxine (7) Depression with anxiety: Plan: Continue Lexapro daily, PRN clonazepam HS (8) HLD (hyperlipidemia): Plan: Continue statin DVT Ppx: SQ lovenox Code status: FULL PCP: Leyda (newly established) Dispo: Admitted to med/surg Please note the above document was generated using voice recognition software. It may contain grammatical, syntax or spelling errors. Any formal questions or concerns about the content, text or information contained within the body of this dictation should be directly addressed to the provider for clarification Admission and Anticipated Discharge Date Admission Date: March 23, 2025 Subjective Patient seen and examined at bedside. She reports that she is feeling much better compared to on admission. She reports that her pain has also improved. She had a fever overnight which improved. Review of Systems Review of Systems: All systems reviewed & are unremarkable except as noted in Subjective Physical Exam Physical Exam: Gen: WD/WN, NAD, sitting in bedside chair, A&Ox3 HEENT: Normocephalic, atraumatic, mucous membranes moist Lung: Clear to Auscultation bilaterally Heart: Regular rate, regular rhythm Abdomen: Soft, NT, ND +BS x 4 Extremities: no edema Skin:Area of erythema over back; increased warmth/tenderness. Patient reports improvement in pain compared to previous day Results & Data Results & Data Vital Signs (Past 12 Hours) Vital Signs Temp Pulse Resp BP Pulse Ox O2 Del Method 03/24/25 07:51 36.8 C 74 18 129/78 94 Room Air 03/24/25 02:18 36.9 C 77 18 113/74 95 Room Air 03/23/25 23:54 38.5 C H (2) Fever Fever type: unspecified Qualified Code(s): R50.9 - Fever, unspecified (4) Diabetes mellitus, type 2 Diabetes mellitus usp insulin use: without supervisor intermediates use Diabetes mellitus complication status: without complication Qualified Code(s): E11.9 - Type 2 diabetes mellitus without complications
--- NOTE | 2025-03-24 12:49 | Pharmacy Report ---
Pharmacy Glycemic Short Note 2 - Date of Service March 24, 2025 - Glycemic Short BSG Results (Last 24 hours): 03/23/25 03/23/25 03/23/25 15:13 18:36 22:37 Glucose 216 H POC Glucose 144 H 159 H 03/24/25 03/24/25 03/24/25 06:23 07:09 11:30 Glucose 139 H POC Glucose 147 H 181 H OUTPATIENT ANTIDIABETIC REGIMEN: * Tresiba 10 units SQ daily * Januvia 100mg PO daily * HbA1c 9.9% (04/01), 9.2% (04/27/24) ASSESSMENT: * Alexandra is a 49 year old female admitted with cellulitis and a history of insulin dependent type 2 diabetes mellitus. Pharmacy has been consulted to assist with glycemic management while inpatient. * Fasting BSg this AM within goal range, will continue current basal regimen. * BSG trending up at lunchtime, will tighten PLAN FOR INPATIENT GLYCEMIC CONTROL: * Hold outpatient oral diabetes medications * Basal insulin * Lantus 5 units SQ BID * Bolus insulin * NovoLog per scale ACHS or Q6hrs while NPO * Goal Range: Low 120 mg/dL - High 150 mg/dL * Correction Factor: 25 mg/dL/unit * Nutritional / Prandial insulin per carb ratio of 1 unit per 8 grams CHO consumed
[2025-03-24] MEDS: ADVANCED PROBIOTIC 625 MG CAPSULE PO SCH (17:16)
[2025-03-25] MEDS: VANCOMYCIN LEVEL ONE (04:03)
[2025-03-25 04:21] LABS: Hematocrit (blood only) 33.5 % (37.0-47.0); Hemoglobin 11.1 g/dl (12.0-16.0); Mean Corpuscular Hemoglobin 28.9 pg (25.0-34.0); Mean Corpuscular Volume 87.2 fL (80.0-100.0); Platelet Count 250 K/uL (130-400); RDW Standard Deviation 38.8 fL (36.4-46.3); Red Blood Count 3.84 M/uL (4.20-5.40); White Blood Count 10.47 K/ul (4.8-10.8)
[2025-03-25 04:37] LABS: Anion Gap 5.0 (3-11); Blood Urea Nitrogen 9.0 mg/dl (6-23); Calcium 8.8 mg/dl (8.6-10.3); Carbon Dioxide 29.0 mmol/L (21-32); Chloride 104.0 mmol/L (98-107); Creatinine Clr Calc Pharmacy 147.3 ml/min; Glucose 192.0 mg/dl (70-99(Fasting)); Potassium 3.9 mmol/L (3.5-5.1); Sodium 138.0 mmol/L (136-145)
[2025-03-25] MEDS: LANTUS PER UNIT CHARGE SQ SCH (08:50)
[2025-03-25] MEDS: VANCOMYCIN HCL 1,250 MG in SODIUM CHLORIDE 0.9% 250 ML IV SCH (12:18)
--- NOTE | 2025-03-25 12:41 | Pharmacy Report ---
Pharmacy Glycemic Short Note 2 - Date of Service March 25, 2025 - Glycemic Short BSG Results (Last 24 hours): 03/24/25 03/24/25 03/25/25 16:07 20:45 03:58 Glucose 192 H POC Glucose 162 H 163 H 03/25/25 03/25/25 07:30 11:05 Glucose POC Glucose 155 H 176 H OUTPATIENT ANTIDIABETIC REGIMEN: * Tresiba 10 units SQ daily * Januvia 100mg PO daily * HbA1c 9.9% (04/01), 9.2% (04/27/24) ASSESSMENT: 03/25 * Alexandra received 35 units of SQ insulin yesterday with good glycemic control (10 units basal + 25 units bolus). * Fasting BSG of 155 mg/dL this AM. Will increase Lantus 20% and transition to once daily dosing in AM since this is how patient administers basal insulin at home. * Post prandial BSG control is adequate. No changes to Novolog. 03/24 * Alexandra is a 49 year old female admitted with cellulitis and a history of insulin dependent type 2 diabetes mellitus. Pharmacy has been consulted to assist with glycemic management while inpatient. * Fasting BSg this AM within goal range, will continue current basal regimen. * BSG trending up at lunchtime, will tighten PLAN FOR INPATIENT GLYCEMIC CONTROL: * Hold outpatient oral diabetes medications * Basal insulin * Lantus 12 units SQ qAM * Bolus insulin * NovoLog per scale ACHS or Q6hrs while NPO * Goal Range: Low 120 mg/dL - High 150 mg/dL * Correction Factor: 25 mg/dL/unit * Nutritional / Prandial insulin per carb ratio of 1 unit per 8 grams CHO consumed
--- NOTE | 2025-03-25 13:57 | Pharmacy Report ---
Pharmacy PK ABX Note - Date of Service March 25, 2025 - Assessment and Plan Assessment 03/25: Vanco trough level resulted at 8 mcg/mL this morning. Predicted AUC/JUANCHO near 400. Given AUC/JUANCHO near low end of goal and subtherapeutic trough, will increase vanco to improve chances of AUC/JUANCHO target attainment. 03/24: 49 year old F receiving vancomycin/cefepime for treatment of cellulitis of the mid back- failed Keflex x5 days and doxycyline x3 outpatient. Pertinent microbiologic data includes: blood cultures pending. Plan Vancomycin * Start 1250 mg IV q8h * Regimen is predicted to achieve target AUC/JUANCHO of 400-600 mg/L.hr * est. steady state AUC/JUANCHO = 562 * Repeat level in the next 48-72 hours assuming stable renal function Pharmacy will continue to follow and will adjust dose/frequency as necessary. Thank you. Pharmacy has transitioned to AUC monitoring for vancomycin. AUC/JUANCHO is the preferred PK/PD target and is associated with decreased risk of nephrotoxicity compared to traditional trough targets.
--- NOTE | 2025-03-25 14:59 | Hospitalist Progress Note ---
Date of Service March 25, 2025 Assessment & Plan (1) Cellulitis: Plan 49-year-old female with PMH of type 2 diabetes, hypothyroidism, intermittent asthma, atherosclerosis of left carotid artery, depression and anxiety who presents from home with cellulitis of mid-back. Cellulitis: Fever: Failure of outpatient treatment: Tmax 102.5 at home, Leukocytosis present on admission Was on Keflex and doxycycline as outpatient; was not improving. Soft tissue ultrasound did not show any presence of abscess Continue on current antibiotics cefepime and vanc; follow-up on blood culture, [id number] Continue Tylenol/Toradol for pain/fever. Diabetes mellitus, type 2: Plan: A1c 9.9 earlier this month, increased from 8.2 Hold home agents Basal/bolus insulin per protocol while admitted Glycemic consult placed, appreciate recs for optimizing home regimen BSG AC HS Hypokalemia: repleted Hypothyroidism: Continue levothyroxine Depression with anxiety: Continue Lexapro daily, PRN clonazepam HS HLD (hyperlipidemia): Continue statin DVT Ppx: SQ lovenox Code status: FULL PCP: Leyda (newly established) Dispo: Admitted to med/surg Please note the above document was generated using voice recognition software. It may contain grammatical, syntax or spelling errors. Any formal questions or concerns about the content, text or information contained within the body of this dictation should be directly addressed to the provider for clarification Admission and Anticipated Discharge Date Admission Date: March 23, 2025 Subjective Patient seen and examined at bedside. She reports that she is feeling much bet ter compared to admission. She reports that her pain has also improved. She had a fever overnight but temp better in am. Physical Exam Physical Exam: Gen: WD/WN, NAD, sitting in bedside chair, A&Ox3 HEENT: Normocephalic, atraumatic, mucous membranes moist Lung: Clear to Auscultation bilaterally Heart: Regular rate, regular rhythm Abdomen: Soft, NT, ND +BS x 4 Extremities: no edema Skin:Area of erythema over back x left. Erythema/tenderness seems to be improving, no fluctuation noted. Results & Data Results & Data Vital Signs (Past 12 Hours) Vital Signs Temp Pulse Resp BP Pulse Ox O2 Del Method 03/25/25 07:55 37.6 C H 79 18 136/75 95 Room Air
[2025-03-25 17:25] VITALS: O2SAT 96
[2025-03-26 01:27] VITALS: RESP 16
[2025-03-26] MEDS: KETOROLAC TROMETHAMINE 15 MG/ML VIAL IV ONE (03:11)
[2025-03-26 06:18] LABS: Hematocrit (blood only) 32.1 % (37.0-47.0); Hemoglobin 11.1 g/dl (12.0-16.0); Mean Corpuscular Hemoglobin 30.2 pg (25.0-34.0); Mean Corpuscular Volume 87.2 fL (80.0-100.0); Platelet Count 239 K/uL (130-400); RDW Standard Deviation 38.3 fL (36.4-46.3); Red Blood Count 3.68 M/uL (4.20-5.40); White Blood Count 8.70 K/ul (4.8-10.8)
[2025-03-26 06:56] LABS: Anion Gap 6.0 (3-11); Blood Urea Nitrogen 8.0 mg/dl (6-23); Calcium 8.4 mg/dl (8.6-10.3); Carbon Dioxide 27.0 mmol/L (21-32); Chloride 105.0 mmol/L (98-107); Creatinine Clr Calc Pharmacy 238.7 ml/min; Glucose 125.0 mg/dl (70-99(Fasting)); Magnesium 1.7 mg/dl (1.7-2.4); Potassium 3.7 mmol/L (3.5-5.1); Sodium 138.0 mmol/L (136-145)
[2025-03-26 07:57] VITALS: PULSE 61; TEMP 97.7
[2025-03-26] MEDS: LANTUS PER UNIT CHARGE SQ SCH (08:20)
[2025-03-26] MEDS ORDERED: VANCOMYCIN LEVEL ONE (11:00)
--- NOTE | 2025-03-26 11:47 | Discharge Summary ---
Date of Service March 26, 2025 Admission HPI Per Admitting Provider This is a 49-year-old female with PMH of type 2 diabetes, hypothyroidism, intermittent asthma, atherosclerosis of left carotid artery, depression and anxiety who presents from home with worsening pain and swelling of lesion on her back as well as fever. Was initially seen in virtual urgent care on 03/19 and was started on Keflex. Area continued to grow bigger and more painful, so she presented to ED for further evaluation. Had a CT scan at that time which did not show fluid collection and was discharged home with instructions to continue Keflex and was started on doxycycline as well. Area has continued to enlarge despite antibiotics, so patient return to ED for further evaluation today. Has had a fever (Tmax 102.5) despite alternating Tylenol and ibuprofen as well as dull headache, chills, generalized weakness and decreased appetite. [place] but denies any known tick or bite. No CP, SOB, N/V, abd pain, dysuria or diarrhea. Feels slightly constipated given poor PO intake. Admission Exam Per Admitting Provider Gen: WD/WN, NAD, sitting in bedside chair, A&Ox3 HEENT: Normocephalic, atraumatic, mucous membranes moist Lung: Clear to Auscultation bilaterally Heart: Regular rate, regular rhythm Abdomen: Soft, NT, ND +BS x 4 Extremities: no edema Skin: Warm, + 9cm x 5cm erythematous, indurated area on the left mid back. No central fluctuance noted. TTP Principal Diagnosis Cellulitis Diabetes mellitus, type 2, ho Discharge Exam Gen: WD/WN, NAD, sitting in bedside chair, A&Ox3 HEENT: Normocephalic, atraumatic, mucous membranes moist Lung: Clear to Auscultation bilaterally Heart: Regular rate, regular rhythm Abdomen: Soft, NT, ND +BS x 4 Extremities: no edema Skin:Area of erythema over back x left. Erythema/tenderness/induration is improving. Erythema changed from angry red to dull red. Discharge Data Allergies Allergy/AdvReac Type Severity Reaction Status Date / Time acetazolamide Allergy Severe SHORT OF Verified 03/21/25 20:31 BREATH/GI UPSET/VOMIT pollen extracts Allergy Intermediate ITCHY Verified 03/21/25 20:32 EYES, SNEEZING Sulfa (Sulfonamide Allergy Intermediate HIVES Verified 03/21/25 20:31 Antibiotics) sulfamethoxazole Allergy Intermediate HIVES Verified 03/21/25 20:31 trimethoprim Allergy Intermediate HIVES Verified 03/21/25 20:31 amoxicillin [From Augmentin] AdvReac Intermediate Diarrhea Verified 03/21/25 20:31 bupropion [From Wellbutrin] AdvReac Intermediate headaches Verified 03/21/25 20:31 cephalexin [From Keflex] AdvReac Intermediate Gastrointestinal Verified 03/23/25 18:43 Upset clavulanic acid AdvReac Intermediate Diarrhea Verified 03/21/25 20:31 [From Augmentin] cyclobenzaprine AdvReac Intermediate GERD Verified 03/21/25 20:31 empagliflozin AdvReac Intermediate ABD UPSET Verified 03/21/25 20:31 [From Jardiance] glipizide AdvReac Intermediate Diarrhea Verified 03/21/25 20:32 metformin AdvReac Intermediate Diarrhea Verified 03/21/25 20:31 nirmatrelvir AdvReac Intermediate Nause and Verified 03/21/25 20:31 [From Paxlovid (EUA)] emesis ritonavir AdvReac Intermediate Nause and Verified 03/21/25 20:31 [From Paxlovid (EUA)] emesis tirzepatide [From Mounjaro] AdvReac Mild BURPS Verified 03/23/25 18:44 semaglutide [From Ozempic] AdvReac Abdominal Verified 03/23/25 18:46 Pain Consultations 03/23/25 16:14 ED Decision to Admit Stat Ordered Studies 03/23/25 14:51 US fidetisbertha valencia/lwjohn back Urgent Hospital Course (1) Cellulitis: Plan 49-year-old female with PMH of type 2 diabetes, hypothyroidism, intermittent asthma, atherosclerosis of left carotid artery, depression and anxiety who presents from home with cellulitis of mid-back. Cellulitis: Fever: Failure of outpatient treatment: Tmax 102.5 at home, Leukocytosis present on admission Was on Keflex and doxycycline as outpatient; was not improving. Soft tissue ultrasound did not show any presence of abscess Continue on current antibiotics cefepime and vanc; follow-up on blood culture, [id number] Continue Tylenol/Toradol for pain/fever. Erythema/induration/tenderness improving, erythema now dull red Patient has been afebrile for more than 24 hours and feels significantly better and pain-free and would like to go home. Diabetes mellitus, type 2: Plan: A1c 9.9 earlier this month, increased from 8.2 Hold home agents Basal/bolus insulin per protocol while admitted Glycemic consult. BSG AC HS Hypokalemia: repleted Hypothyroidism: Continue levothyroxine Depression with anxiety: Continue Lexapro daily, PRN clonazepam HS HLD (hyperlipidemia): Continue statin DVT Ppx: SQ lovenox Code status: FULL PCP: Leyda (newly established) Dispo: Admitted to med/surg Patient is being discharged home with following instructions at the point of discharge: Follow-up with your primary care physician within a week time and likely you will need labs CBC/CMP/magnesium/phosphorus. You will be discharged on antibiotic to complete 10-day course for your cellulitis since admission date. You will need 7 more days of cefuroxime bid and doxycycline bid after discharge. As discussed at the bedside, have your partner monitor the cellulitis in your back, if purulent drainage/increasing erythema/increasing pain/increasing tenderness and further febrile episodes, report to emergency. Follow-up with diabetic clinic in a week time upon discharge. Take your medications as prescribed. Please make sure that you are able to get your medications today by calling your pharmacy before you leave the hospital so that your treatment continuity is not broken. Please note the above document was generated using voice recognition software. It may contain grammatical, syntax or spelling errors. Any formal questions or concerns about the content, text or information contained within the body of this dictation should be directly addressed to the provider for clarification Home Health Attestation I certify that this patient is under my care and that I, or a physicians nutritional assistant working with me, had a face to-face encounter that meets the home health [id number] encounter requirements with this patient. The encounter with the patient was in whole, or in part, for the following medical condition, which is the primary reason for home health care (list medical condition): I certify that, based on my findings, the following services are medically necessary home health services: My clinical findings support the need for the above services because: Further, I certify that my clinical findings support that this patient is homebound (i.e. absences from home require considerable and taxing effort and are for medical reasons or holiness services or infrequently or of short duration when for other reasons) because: Certification for Home Health Services: Based on the above findings, I certify that this patient is confined to the home and needs intermittent intermediate care, physical therapy and/or speech therapy or continues to need occupational therapy. The patient is under my care, and I have initiated the establishment of the plan of care. This patient will be followed by a physician who will periodically review the plan of care. Total Time Total Time Spent Total Time Spent (In Minutes): 35 Discharge Plan Discharge Items Patient Disposition: Home - Self-Care Reason For Visit: CELLULITIS ON BACK, UNCONTROLLED DM II Discharge Diagnosis: Cellulitis Diabetes mellitus, type 2, ho Condition on Discharge: Fair Activity: Resume your previous activity Non-emergency contact: Primary Care Provider Call non-emergency contact if: you have any medication questions and your symptoms worsen Follow-up/Referrals: Jeffery Crabtree MD [Primary Care Provider] - (Date & Time 03/30/2025 11:00 AM Provider: Jeffery Crabtree DO General Internal Medicine [facility] ) Diet: Carb Consistent or DM2 Addtl Attending Provider Instructions: Follow-up with your primary care physician within a week time and likely you will need labs CBC/CMP/magnesium/phosphorus. You will be discharged on antibiotic to complete 10-day course for your cellulitis since admission date. You will need 7 more days of cefuroxime bid and doxycycline bid after discharge. As discussed at the bedside, have your partner monitor the cellulitis in your back, if purulent drainage/increasing erythema/increasing pain/increasing tenderness and further febrile episodes, report to emergency. Follow-up with diabetic clinic in a week time upon discharge. Take your medications as prescribed. Please make sure that you are able to get your medications today by calling your pharmacy before you leave the hospital so that your treatment continuity is not broken. Pending Studies at Discharge: Yes Stand-Alone Forms: My Testive, Smoking Cessation Medications and DC Order Prescriptions: New Advanced Probiotic 625 mg (10 billion cell) Capsule 1 cap PO DAILY 14 Days Qty: 14 0RF cefuroxime axetil 500 mg tablet 500 mg PO BID 7 Days Qty: 14 0RF Continued (DME) blood-glucose meter [OneTouch Ultra2 Meter] kit See Dose Instructions .ROUTE .MEDSUPPLY Qty: 1 0RF Dose Instruction: As directed Rx Instructions: As directed Dx E11.9 (DME) lancets [OneTouch Delica Lancets] 33 gauge misc See Dose Instructions .ROUTE .MEDSUPPLY Qty: 100 3RF Dose Instruction: As directed Rx Instructions: As directed once daily Januvia 100 mg tablet 100 mg PO DAILY Qty: 90 3RF albuterol sulfate 90 mcg/actuation HFA aerosol inhaler 2 puff inhalation Q4H PRN (Reason: shortness of breath or wheezing) Qty: 72 1RF (DME) blood sugar diagnostic Strip See Dose Instructions .ROUTE .MEDSUPPLY Qty: 100 4RF Dose Instruction: As directed Rx Instructions: As directed Test 1 time a day Dx E11.9 doxycycline hyclate 100 mg capsule 100 mg PO BID 3 Days Qty: 6 0RF escitalopram oxalate 20 mg tablet 20 mg PO DAILY insulin degludec [Tresiba FlexTouch U-200] 200 unit/mL (3 mL) Insulin Pen 15 unit SUBCUT DAILY cetirizine 10 mg tablet 10 mg PO QAM clonazepam 1 mg tablet 1 mg PO HS PRN (Reason: ANXIETY/SLEEP) levothyroxine 50 mcg tablet 50 mcg PO DAILYBB rosuvastatin 10 mg tablet 10 mg PO DAILY Discontinued cephalexin 500 mg capsule 500 mg PO QID Rx Instructions: STARTED 03/19/25 FOR 7 DAYS Discharge Orders: Discharge Order (Routine); Ordered 03/26/25 Ordered By: Rk Calero Admission Data Admit Date/Time: 03/23/25 17:35 Attending Provider: Rk Calero Admit Provider: Matty Zhong Primary Care Provider: Jeffery Crabtree Other Providers: Matty Zhong
[2025-03-26 13:09] VITALS: BP 128/77
== END 2025-03-26 13:09 | disposition home or self-care (01) | DRG 603 ==
LOC: ED 14:24 → SUATTDRO 17:35 → 3W 17:35 → INTOOBSV 17:35 → 3W 18:10